=== PATIENT | male | born 1990 | race Two or more races ===

== ENCOUNTER 2021-12-04 11:30 | Emergency (ER) | payer MEDICAID ==
[~2021-12-04] VITALS: Ht 182.9 cm; Wt 86.2 kg
[2021-12-04] MEDS ORDERED: KETOROLAC TROMETH 30 MG/ML 1ML VIAL IV ONE ×2 (12:00→13:30)
[2021-12-04] MEDS ORDERED: ETOMIDATE (2MG/ML) 20ML VIAL IV ONE (13:30)
[2021-12-04] MEDS ORDERED: PROPOFOL 100 ML IV ONE (13:52)
[2021-12-04] MEDS ORDERED: PROPOFOL 10 MG/ML 20 ML IV ONE ×4 (13:52→13:57)
[2021-12-04 14:00] VITALS: BP 121/73
[2021-12-04] MEDS ORDERED: HYDROcodone-ACET 5/325MG TAB PO ONE (15:45)
== END 2021-12-04 15:38 | disposition home or self-care (01) ==
LOC: ER 11:30
DX: S43.005A Unspecified dislocation of left shoulder joint, initial encounter (principal); X58.XXXA Exposure to other specified factors, initial encounter; Y93.89 Activity, other specified; Y92.89 Other specified places as the place of occurrence of the external cause; Y99.8 Other external cause status
CPT/HCPCS: 23650; 73020; 73030; 96374; 96376; 99152; 99285; J1885; J2704